=== PATIENT | female | born 1965 | race Caucasian/White ===

== ENCOUNTER → 2017-04-03 17:11 | Outpatient (CLI) | payer BC | END | disposition home or self-care (01) | LOC: D.MAMMO 15:30 | DX: Z12.31 Encounter for screening mammogram for malignant neoplasm of breast (principal) ==

== ENCOUNTER 2019-01-19 16:00 | Outpatient (CLI) | payer OTHER | END 2019-01-19 16:30 | disposition home or self-care (01) | LOC: D.MAMMO 16:00 | PROVIDERS: ATTEND Family Medicine | DX: Z12.31 Encounter for screening mammogram for malignant neoplasm of breast (principal) ==

== ENCOUNTER 2020-06-14 16:00 | Outpatient (CLI) | payer BC | END 2020-06-14 23:59 | disposition home or self-care (01) | LOC: D.MAMMO 16:00 | PROVIDERS: ATTEND Family Medicine | DX: N63.22 Unspecified lump in the left breast, upper inner quadrant (principal) ==